=== PATIENT | male | born 1950 | race Caucasian/White ===

== ENCOUNTER 2019-02-05 13:39 | Emergency (ER) | payer BC, OTHER ==
--- OUTSIDE RECORDS SUMMARY | 2019-02-05 13:42 | XMS REPORT | Summary of Care ---
:1950 Author Organization [facility] Cardiology [facility] Address [address] [place] [address]- Encounter HQ Aydeer_williams(FIN) [id number] Date(s): 10/21/18 - 10/21/18 [facility] [address] [place], [place] [address]- [phone] Discharge Disposition: Home or Self Care Attending Physician: Yadiel Wilson MD Vital Signs Most recent to oldest [Reference Range]: 1 Height 172.72 cm (10/21/18 2:30 PM) Blood Pressure [90-140/60-90 mmHg] 154/90 mmHg *HI* (10/21/18 2:30 PM) Weight 89.148 kg (10/21/18 2:30 PM) Body Mass Index 29.88 m2 (10/21/18 2:30 PM) Problem List Condition Effective Dates Status Health Status Informant Asthma1, 2 Active Benign hypertension(Confirmed) Active Chest discomfort(Confirmed) Active Dyspnea3, 4 03/10/13 Active Dyspnea on exertion(Confirmed) Active [place] - Hard of hearing(Confirmed) Active Mass of chest wall(Confirmed) Active Obesity5, 6 03/10/13 Active 1Data migrated from [employer] on 12/15/14.2Data migrated from [employer] on 12/15/14.3Data migrated from [employer] on 12/15/14.4Data migrated from [employer] on 12/15/14.5Data migrated from [employer] on 12/15/14.6Data migrated from [employer] on 12/15/14. Allergies, Adverse Reactions, Alerts Substance Reaction Severity Status penicillins1 PENICILLINS Active PENICILLINS Antibody to PCNA measurement Antibody to PCNA measurement Penicillin G Benzathine,300,000 U/ML,Injection (systemic),injection 1Data migrated from [employer] on 02/11/15. Originally documented as PCN. Medications losartan 50 mg oral tablet 50 mg=1 tab, PO, Daily, # 90 tab, 3 Refill(s), Pharmacy: [place] [id number] Start Date: 10/21/18 Stop Date: 10/16/19 Status: Ordered Results No data available for this section Immunizations No data available for this section Procedures Procedure Date Related Diagnosis Body Site Status Achilles tendon repair Completed Arthroscopy of knee Completed Operation Completed Social History Social History Type Response Exercise Exercise frequency: 1-2 times/week. Alcohol Never Smoking Status Never smoker; Exposure to Tobacco Smoke None; Cigarette Smoking Last 365 Days No; Reg Smoking Cessation Counseling No entered on: 10/21/18 Assessment and Plan No data available for this section
--- OUTSIDE RECORDS SUMMARY | 2019-02-05 13:42 | XMS REPORT | Continuity of Care Document ---
:1950 Author Organization [facility] [place] Care Team Providers Name Role Phone The[facility] Information Interactive TKO Unavailable Unavailable Problems Problem Status Onset Classification Date Comments Source Date Reported Dyspnea3, 4 Active 03/10/20 Problem 01/17/2019 Data migrated from [email or web address] on 12/15/14. Medical 13 Data migrated from [email or web address] on 12/15/14. Group,[facility] Obesity5, 6 Active 03/10/20 Problem 01/17/2019 Data migrated from [email or web address] on 12/15/14. Medical 13 Data migrated from [email or web address] on 12/15/14. Group,[facility] 733.90 Active 03/10/20 13 [facility] Asthma1, 2 Active Problem 01/17/2019 Data migrated from [email or web address] on 12/15/14. Medical Data migrated from [email or web address] on 12/15/14. Group,[facility] Benign Active Problem 01/17/2019 Medical hypertension Group,[facility] Chest discomfort Active Problem 01/17/2019 Medical Group,[facility] Dyspnea on Active Problem 01/17/2019 Medical exertion Group,[facility] [place] - Hard of Active Problem 01/17/2019 Medical hearing Group,[facility] Mass of chest Active Problem 01/17/2019 Medical wall Group,[facility] Agatston Active Problem 01/17/2019 Medical coronary artery Group, calcium score [facility] greater than 400 [facility] Aortic ectasia, Active Problem 01/17/2019 Medical thoracic Group Hyperglycemia Active Problem 01/17/2019 Medical Group,[facility] Medications Medication Details Route Status Patient Ordering Order Source Instructions Provider Date Oxymetazoline 2 spray, Active hydrochloride NASAL, BID, 019 Medical 0.5 MG/ML Nasal 0 Refill(s) Group [place] [Mucinex Nasal [place]] losartan 50 mg 50 mg=1 tab, Active oral tablet PO, Daily, # 019 Medical 90 tab, 3 Group Refill(s), Pharmacy: [facility] [id number] Allergies, Adverse Reactions, Alerts Substance Category Reaction Severity Reaction Status Date Comments Source type Reported penicillins Assertion PENICILLINS Drug Active Data <sup>1</sup , allergy 3 migrated Medical > PENICILLINS from [employer] , Antibody [employer]ricity to PCNA on 02/11/15. measurement Originally , Antibody documented to PCNA as PCN. measurement , Penicillin G Benzathine, 300,000 U/ML,Inject ion (systemic), injection Immunizations No Data Provided for This Section Results No Data Provided for This Section Pathology Reports No Data Provided for This Section Diagnostic Reports Report Value Date Source Heart wo contrast w EXAM: 11/27/2018 [facility] eval coronary calc C CT coronary artery calcium scoring without contrast. City CLINICAL HX: - htn. Screening. Age: 68 years. Gender: Male. TECHNIQUE: Contiguous axial coned down CT images of the heart. IV contrast: Absent. Protocol: Coronary artery calcium scoring with analysis performed using Agatston scoring method (utilizing AJ 130 software). No cardiac gating. Dose: -- DLP 196 mGy-cm. -- AEC, mA/kV adjustment by patient size, and/or iterative reconstruction technique were used, per departmental dose-optimization program. COMPARISON: None. FINDINGS: --Cardiac findings-- Coronary artery calcium score: -- Left main artery (LMA): 0. -- Left anterior descending artery (LAD): 575. -- Left circumflex artery (LCx): 131. -- Right coronary artery (RCA): 212. -- Posterior descending artery (PDA): 0. -- Other: 0. -- Total: 918. Coronary arteries: Detailed evaluation limited by absence of cardiac gating. -- LMA origin: Left coronary cusp. -- RCA origin: Right coronary cusp. -- Dominance (based on PDA source): Cannot be definitively determined due to non-gated study. Heart: Unremarkable. --Noncardiac findings-- Thoracic aorta: -- Ascending aorta diameter: 4 cm (at the level of the right pulmonary artery ). -- Other: None. Other: Bilateral hilar calcified granulomas. Mild gynecomastia. IMPRESSION: 1. Total calcium score: 918. This is consistent with extensive atherosclerotic plaque burden and corresponds to the 80%ile for a healthy person of similar age/gender (with lower percentiles generally being better). 2. Mild ascending aortic aneurysmal dilatation measuring 4 cm. Consider follow-up. Note: -- Clinical significance of calcium score should be weighed along with other factors, such as number of calcified vessels (heightened significance when >/=2 vessels), age/gender, symptoms, and risk factors. -- A calcium score of 0 does not entirely exclude the presence of soft noncalcified plaque, particularly in younger patients and heavy smokers. Consultation Notes No Data Provided for This Section Discharge Summaries No Data Provided for This Section History and Physicals No Data Provided for This Section Vital Signs Vital Sign Value Date Comments Source Height 172.72 cm 01/15/2019 [facility] Systolic (mm Hg) 126 01/15/2019 [facility] Diastolic (mm Hg) 82 01/15/2019 [facility] BMI Calculated 29.71 01/15/2019 [facility] Weight 88.636 01/15/2019 [facility] Weight 89.148 10/21/2018 [facility] BMI Calculated 29.88 10/21/2018 [facility] Systolic (mm Hg) 154 10/21/2018 [facility] Diastolic (mm Hg) 90 10/21/2018 [facility] Height 172.72 cm 10/21/2018 [facility] Encounters Location Location Encounter Encounter Reason Attending ADM DC Status Source Details Type Number For Provider Date Date Visit [facility] [id number] 733.90 ZA BUENO 03[facility]21 03[facility]21 [facility] [id number] Yadiel Wilson 10/[address] [facility] Outpatient [id number] Yadiel Wilson 10/21 10/22 Cardiology [facility] Outpatient [id number] 11/[address] [facility] Outpatient [id number] August Arreola 11/15 11/16 Cardiology [facility] Outpt Diag [id number] Yadiel Wilson 11/27 11/28 [facility] Outpatient [id number] 12/[address] [facility] 2 -VISIT [place] [facility] Outpatient [id number] August Arreola 12/03 12/04 Cardiology [facility] Outpatient [id number] Yadiel Wilson 01/[address] [facility] [place] [facility] Outpatient [id number] Yadiel Wilson 01/15 01/16 Cardiology [facility] Procedures Procedure Code Date Perfomer Comments Source Achilles tendon [id number] Medical repair Group Arthroscopy of [id number] Medical knee Group Operation [id number] Medical Group CT of heart [id number] See Care 4 Medical without contrast Group with calcium scoring<sup>1</back p> Echocardiogram<back [id number] See Care 4 Medical p>2</sup> Group Exercise stress [id number] See Care 4 Medical test<sup>3</sup> Group Achilles tendon [id number] [facility] repair [facility] Arthroscopy of [id number] [facility] knee [facility] CT of heart 851553851535792 See Care 4 [facility] without contrast [facility] with calcium scoring<sup>1</back p> Operation [id number] [facility] Assessment and Plan No Data Provided for This Section Plan of Care No Data Provided for This Section Social History Social History Date Source Social History TypeResponse 10/21/2018 Medical Group Exercise Exercise frequency: 1-2 times/week. Alcohol Never Smoking Status Never smoker; Exposure to Tobacco Smoke None; Cigarette Smoking Last 365 Days No; Reg Smoking Cessation Counseling No entered on: 01/15/19 Social History TypeResponse 10/21/2018 [facility] Exercise Exercise frequency: 1-2 times/week. Alcohol Never Smoking Status Never smoker; Exposure to Tobacco Smoke None; Cigarette Smoking Last 365 Days No; Reg Smoking Cessation Counseling No entered on: 10/21/18 Family History No Data Provided for This Section Advance Directives No Data Provided for This Section Functional Status No Data Provided for This Section
--- OUTSIDE RECORDS SUMMARY | 2019-02-05 13:42 | XMS REPORT | Summary of Care ---
:1950 Author Organization [facility] Cardiology [facility] Address [address] [place] [address]- Encounter HQ Aydeer_williams(FIN) [id number] Date(s): 11/15/18 - 11/15/18 [facility] [address] [place], [place] [address]- [phone] Discharge Disposition: Home or Self Care Attending Physician: Yadiel Wilson MD Referring Physician: August Arreola MD Vital Signs No data available for this section Problem List Condition Effective Dates Status Health Status Informant Asthma1, 2 Active Benign hypertension(Confirmed) Active Chest discomfort(Confirmed) Active Dyspnea3, 4 03/10/13 Active Dyspnea on exertion(Confirmed) Active [place] - Hard of hearing(Confirmed) Active Mass of [...] G Benzathine,300,000 U/ML,Injection (systemic),injection 1Data migrated from [employer] on 02/11/15. Originally documented as PCN. Medications No data available for this section Results No data available for this section [...]
--- OUTSIDE RECORDS SUMMARY | 2019-02-05 13:42 | XMS REPORT ---
:1950 [facility] Address [address] [place] [address] Care Team Providers Name Role Phone Unavailable Unavailable Unavailable Problems This patient has no known problems. Allergies, Adverse Reactions, Alerts This patient has no known allergies or adverse reactions. Medications This patient has no known medications.
--- OUTSIDE RECORDS SUMMARY | 2019-02-05 13:42 | XMS REPORT | Summary of Care ---
:1950 Author Organization [facility] Outpatient Imaging [facility] Address [address] [place] [address]- Encounter HQ Aydeer_williams(FIN) [id number] Date(s): 11/27/18 - 11/27/18 [facility] Outpatient Imaging [address] [address]- [phone] Discharge Disposition: Home or Self Care Attending Physician: Yadiel Wilson MD Referring Physician: Yadiel Wilson MD Vital Signs No data available for this section Problem List Condition Effective Dates Status Health Status Informant Asthma1, 2 Active Benign hypertension(Confirmed) Active Chest discomfort(Confirmed) Active Agatston coronary artery calcium score Active greater than 400(Confirmed) Dyspnea3, 4 03/10/13 Active Dyspnea on exertion(Confirmed) Active [place] - Hard of hearing(Confirmed) Active Hyperglycemia(Confirmed) Active Mass of chest wall(Confirmed) Active Obesity5, [...] tendon repair Completed Arthroscopy of knee Completed CT of heart without contrast with calcium Completed scoring1 Operation Completed 1See Care 4 Social History Social History Type Response Exercise Exercise frequency: 1-2 times/week. Alcohol Never Smoking Status Never smoker; Exposure to Tobacco Smoke None; Cigarette Smoking Last 365 Days No; Reg Smoking Cessation Counseling No entered on: 10/21/18 Assessment and Plan No data available for this section
--- OUTSIDE RECORDS SUMMARY | 2019-02-05 13:42 | XMS REPORT | Summary of Care ---
:1950 Author Organization [facility] Cardiology [facility] Address [address] [place] [address]- Encounter HQ Aydeer_williams(FIN) [id number] Date(s): 12/03/18 - 12/03/18 [facility] [address] [place], [place] [address]- [phone] Discharge Disposition: Home or Self Care Attending Physician: Yadiel Wilson MD Referring Physician: August Arreola MD Vital Signs No data available for this section Problem List Condition Effective Dates Status Health Status Informant Asthma1, 2 Active Benign hypertension(Confirmed) Active Chest discomfort(Confirmed) Active Agatston coronary artery calcium score Active greater than 400(Confirmed) Dyspnea3, 4 03/10/13 Active Dyspnea on exertion(Confirmed) Active [place] - Hard of hearing(Confirmed) Active Hyperglycemia(Confirmed) Active [...]
--- OUTSIDE RECORDS SUMMARY | 2019-02-05 13:42 | XMS REPORT | Summary of Care ---
:1950 Author Organization [facility] Cardiology [facility] Address [address] [place] [address]- Encounter HQ Mikayla_williams(FIN) [id number] Date(s): 01/15/19 - 01/15/19 [facility] [address] [place], [place] [address]- [phone] Discharge Disposition: Home or Self Care Attending Physician: Yadiel Wilson MD Referring Physician: August Arreola MD Vital Signs Most recent to oldest [Reference Range]: 1 Height 172.72 cm (01/15/19 1:01 PM) Blood Pressure [90-140/60-90 mmHg] 126/82 mmHg (01/15/19 1:01 PM) Weight 88.636 kg (01/15/19 1:01 PM) Body Mass Index 29.71 m2 (01/15/19 1:01 PM) Problem List Condition Effective Dates Status Health Status Informant Asthma1, 2 Active Benign hypertension(Confirmed) Active Chest discomfort(Confirmed) Active Agatston coronary artery calcium score Active greater than 400(Confirmed) Dyspnea3, 4 03/10/13 Active Dyspnea on exertion(Confirmed) Active Aortic ectasia, thoracic(Confirmed) Active [place] - Hard of hearing(Confirmed) Active Hyperglycemia(Confirmed) Active [...] G Benzathine,300,000 U/ML,Injection (systemic),injection 1Data migrated from [employer] on 02/11/15. Originally documented as PCN. Medications Mucinex Sinus-Max Moisture Smart 0.05% nasal spray 2 spray, NASAL, BID, 0 Refill(s) Start Date: 01/15/19 Status: Ordered Results No data available for this section Immunizations No data available for this section Procedures Procedure Date Related Diagnosis Body Site Status Achilles tendon repair Completed Arthroscopy of knee Completed CT of heart without contrast with calcium Completed scoring1 Echocardiogram2 Completed Exercise stress test3 Completed Operation Completed 1See Care 42See Care 43See Care 4 Social History Social History Type Response Exercise Exercise frequency: 1-2 times/week. Alcohol Never Smoking Status Never smoker; Exposure to Tobacco Smoke None; Cigarette Smoking Last 365 Days No; Reg Smoking Cessation Counseling No entered on: 01/15/19 Assessment and Plan No data available for this section
[2019-02-05] MEDS ORDERED: LEVALBUTEROL 1.25 MG/3 ML NEB ONE (14:14)
[2019-02-05] MEDS ORDERED: MEPERIDINE HCL 25 MG/0.5 ML ONE (14:14)
--- NOTE | 2019-02-05 15:05 | RAD REPORT ---
EXAM DESCRIPTION: RAD - Chest Pa And Lat (2 Views) - 02/05/2019 3:00 pm CLINICAL HISTORY: PAIN Chest pain. COMPARISON: No comparisons FINDINGS: Mild linear subsegmental atelectasis is seen in the left lower lobe. The lungs are otherwi se clear. The heart is normal in size. Subtle lucency is seen in the lateral left inferior tenth rib, questionable for a nondisplaced fracture.
--- NOTE | 2019-02-05 15:09 | RAD REPORT ---
EXAM DESCRIPTION: RAD - Ribs Left - 02/05/2019 3:03 pm CLINICAL HISTORY: rolled over large bolt;Pain COMPARISON: Chest Pa And Lat (2 Views) dated 02/05/2019 FINDINGS: A displaced rib fracture is not identified. No underlying pneumothorax seen.
--- NOTE | 2019-02-05 15:23 | EDPHYS ---
Physician Documentation [facility] Name: Aunp Dawn Age: 68 yrs Sex: Male : 1950 Arrival Date: 02/05/2019 Time: 13:45 Bed 5 Private MD: ED Physician Brayden De Leon HPI: 02/05 13:56 This 68 yrs old Male presents to ER via Ambulatory with complaints of Rib rn pain. 13:56 The patient or guardian reports chest pain that is located primarily in the anterior rn chest wall, left lateral anterior chest. Onset: The symptoms/episode began/occurred yesterday. The pain does not radiate. Associated signs and symptoms: Pertinent positives: cough, shortness of breath, Pertinent negatives: abdominal pain, diaphoresis, palpitations, syncope, vomiting. The chest pain is described as sharp, stabbing. Duration: The patient or guardian reports multiple episodes, that are intermittent. Modifying factors: The symptoms are alleviated by nothing. the symptoms are aggravated by cough, deep breath, palpation of area. Severity of pain: At its worst the pain was moderate in the emergency department the pain is unchanged. The patient has not experienced similar symptoms in the past. Reports rolled over large bolt yesterday, states "went between the ribs", denies actual puncture, reports increased pain since then and sob. Denies smoking history, reports recent "sinus problems". No hemoptysis. [place] a pop when rolled over the bolt head.. Historical: - Allergies: 13:51 PENICILLINS; aj - Immunization history:: Adult Immunizations up to date. - Social history:: Smoking status: Patient/guardian denies using tobacco. - Ebola Screening: : Patient negative for fever greater than or equal to 101.5 degrees Fahrenheit, and additional compatible Ebola Virus Disease symptoms Patient denies exposure to infectious person Patient denies travel to an Ebola-affected area in the 21 days before illness onset No symptoms or risks identified at this time. - Family history:: not pertinent. - Hospitalizations: : No recent hospitalization is reported. ROS: 13:56 Constitutional: Negative for fever, chills, and weight loss, Eyes: Negative for injury, rn pain, redness, and discharge, Cardiovascular: + left rib pain and injury Respiratory: + sob and cough Abdomen/GI: Negative for abdominal pain, nausea, vomiting, diarrhea, and constipation, MS/Extremity: Negative for injury and deformity, Skin: Negative for injury, rash, and discoloration, Neuro: Negative for headache, weakness, numbness, tingling, and seizure. Exam: 14:41 Constitutional: This is a well developed, well nourished patient who is awake, alert, rn + mild tachypnea and appears in pain Head/Face: Normocephalic, atraumatic. Eyes: Pupils equal round and reactive to light, extra-ocular motions intact. Lids and lashes normal. Conjunctiva and sclera are non-icteric and not injected. Cornea within normal limits. Periorbital areas with no swelling, redness, or edema. ENT: MMM Chest/axilla: + tender left lateral ribs, no crepitus, no open wound or puncture wounds Cardiovascular: tachycardic, regular, no murmur Respiratory: + bilateral wheezing with tachypnea, no retractions, breath soudns equal Abdomen/GI: soft, non-tender MS/ Extremity: Pulses equal, no cyanosis. Neurovascular intact. Full, normal range of motion. Equal circumference. Neuro: Awake and alert, GCS 15, oriented to person, place, time, and situation. Cranial nerves II-XII grossly intact. Motor strength 5/5 in all extremities. Sensory grossly intact. Cerebellar exam normal. Normal gait. Vital Signs: 13:51 BP 153 / 96; Pulse 110; Resp 23; Temp 98.2; Pulse Ox 92% on R/A; Weight 88.45 kg; aj Height 5 ft. 8 in. (172.72 cm); 14:38 BP 119 / 86; Pulse 115; Resp 22; Pulse Ox 94% on R/A; hj 15:39 BP 115 / 85; Pulse 90; Resp 18; Pulse Ox 95% on R/A; hj 13:51 Body Mass Index 29.65 (88.45 kg, 172.72 cm) aj MDM: 13:49 Patient medically screened. rn 15:20 Differential diagnosis: Blunt Chest Trauma Chest Wall Contusion Chest Wall Injury rn Pneumothorax Pulmonary Contusion Rib Fracture. Data reviewed: vital signs, nurses notes, radiologic studies, plain films, and as a result, I will discharge patient. Counseling: I had a detailed discussion with the patient and/or guardian regarding: the historical points, exam findings, and any diagnostic results supporting the discharge/admit diagnosis, radiology results, the need for outpatient follow up, to return to the emergency department if symptoms worsen or persist or if there are any questions or concerns that arise at home. Response to treatment: the patient's symptoms have mildly improved after treatment, and as a result, I will discharge patient. Special discussion: I discussed with the patient/guardian in detail that at this point there is no indication for admission to the hospital. It is understood, however, that if the symptoms persist or worsen the patient needs to return immediately for re-evaluation. Based on the history and exam findings, there is no indication for further emergent testing or inpatient evaluation. I discussed with the patient/guardian the need to see the primary care provider for further evaluation of the symptoms. ED course: Possible rib fracture on xray, no PTX, will dc home with pain meds, IS, and inhaler. Told him wheezing likely from second hand smoke from .. 02/05 13:50 Order name: Chest Pa And Lat (2 Views) XRAY; Complete Time: 15:16 bd 02/05 13:56 Order name: XRAY Ribs LEFT; Complete Time: 15:16 rn 02/05 13:54 Order name: EKG; Complete Time: 13:55 rn 02/05 15:24 Order name: INCENTIVE SPIROMETRY rn 02/05 13:54 Order name: IV Start; Complete Time: 14:04 rn 02/05 13:54 Order name: EKG - Nurse/Tech; Complete Time: 14:04 rn Administered Medications: 13:55 Drug: Xopenex (3) 1.25 mg Route: Inhalation; hj 15:17 Follow up: Response: No adverse reaction; Wheezing diminished hj 13:55 Drug: Demerol 25 mg Route: IVP; Site: left forearm; hj 15:16 Follow up: Response: No adverse reaction hj 15:16 Follow up: Response: No adverse reaction; Pain is decreased hj Disposition: 02/05/19 15:22 Discharged to Home. Impression: Wheezing, Fracture of one rib, left side. - Condition is Stable. - Discharge Instructions: How to Use an Inhaler, Rib Fracture, Incentive Spirometer. - Prescriptions for Prednisone 20 mg Oral Tablet - take 3 tablet by ORAL route once daily for 5 days; 15 tablet. Tylenol- Codeine #3 300-30 mg Oral Tablet - take 1 tablet by ORAL route every 6 hours As needed; 20 tablet. Albuterol Sulfate 90 mcg/actuation - inhale 1-2 puff by INHALATION route every 4-6 hours; 1 Inhaler. - Medication Reconciliation Form, Thank You Letter, Antibiotic Education, Prescription Opioid Use form. - Follow up: Private Physician; When: As needed; Reason: Recheck today's complaints, Re-evaluation by your physician. - Problem is new. - Symptoms have improved. Signatures: Dispatcher [employer] EDMS Micheline Bernard RN RN aj Nieto, Roman, MD MD rn Joaquin, Henry, RN RN hj Corrections: (The following items were deleted from the chart) 14:41 13:56 Constitutional: Negative for fever, chills, and weight loss, Eyes: Negative for rn injury, pain, redness, and discharge, Cardiovascular: + left rib pain and injury Respiratory: + sob and cough rn 15:39 15:22 02/05/2019 15:22 Discharged to Home. Impression: Wheezing; Fracture of one rib, hj left side. Condition is Stable. Forms are Medication Reconciliation Form, Thank You Letter, Antibiotic Education, Prescription Opioid Use. Follow up: Private Physician; When: As needed; Reason: Recheck today's complaints, Re-evaluation by your physician. Problem is new. Symptoms have improved. rn
--- NOTE | 2019-02-05 15:23 | ER ---
Nurse's Notes [facility] Name: Anup Dawn Age: 68 yrs Sex: Male : 1950 Arrival Date: 02/05/2019 Time: 13:45 Bed 5 Private MD: Diagnosis: Wheezing;Fracture of one rib, left side Presentation: 02/05 13:50 Presenting complaint: Patient states: Right rib pain after feeling a pop while working aj on truck yesterday after brushing up on a bolt. Patient then felt pop and has had SOB after coughing last night. Decreased breath sounds to right bases. Transition of care: patient was not received from another setting of care. Onset of symptoms was February 05, 2019. Risk Assessment: Do you want to hurt yourself or someone else? Patient reports no desire to harm self or others. Initial Sepsis Screen: Does the patient meet any 2 criteria? No. Patient's initial sepsis screen is negative. Does the patient have a suspected source of infection? No. Patient's initial sepsis screen is negative. Care prior to arrival: None. 13:50 Method Of Arrival: Ambulatory 13:50 Acuity: [place] 2 aj Triage Assessment: 13:51 General: Appears in no apparent distress. uncomfortable, Behavior is calm, cooperative, aj appropriate for age. Pain: Complains of pain in left eighth rib and left ninth rib. Neuro: Level of Consciousness is awake, alert, obeys commands, Oriented to person, place, time, situation, Appropriate for age. Respiratory: Reports shortness of breath cough that is Airway is patent Respiratory effort is even, labored, Respiratory pattern is tachypnea Breath sounds are diminished in left lower lobe and left posterior lower lobe. Derm: Skin is intact, is healthy with good turgor, Skin is pink, warm \T\ dry. normal. Historical: - Allergies: 13:51 PENICILLINS; aj - Immunization history:: Adult Immunizations up to date. - Social history:: Smoking status: Patient/guardian denies using tobacco. - Ebola Screening: : Patient negative for fever greater than or equal to 101.5 degrees Fahrenheit, and additional compatible Ebola Virus Disease symptoms Patient denies exposure to infectious person Patient denies travel to an Ebola-affected area in the 21 days before illness onset No symptoms or risks identified at this time. - Family history:: not pertinent. - Hospitalizations: : No recent hospitalization is reported. Screenin:53 Abuse screen: Denies threats or abuse. Denies injuries from another. Nutritional hj screening: No deficits noted. Tuberculosis screening: No symptoms or risk factors identified. Fall Risk None identified. Assessment: 13:51 General: Appears in no apparent distress. uncomfortable, Behavior is calm, cooperative, hj appropriate for age. Pain: Complains of pain in left lateral anterior chest and left posterior lower lobe and left lower lobe and left ninth rib and left eighth rib Pain currently is 10 out of 10 on a pain scale. Neuro: Level of Consciousness is awake, alert, obeys commands, Oriented to person, place, time, situation, Appropriate for age. Cardiovascular: Capillary refill < 3 seconds Patient's skin is warm and dry. Respiratory: Reports pain with respiration. GI: No signs and/or symptoms were reported involving the gastrointestinal system. : No signs and/or symptoms were reported regarding the genitourinary system. EENT: No signs and/or symptoms were reported regarding the EENT system. Derm: No signs and/or symptoms reported regarding the dermatologic system. Musculoskeletal: No signs and/or symptoms reported regarding the musculoskeletal system. 14:50 Reassessment: Patient and/or family updated on plan of care and expected duration. Pain hj level reassessed. Patient is alert, oriented x 3, equal unlabored respirations, skin warm/dry/pink. Patient states feeling better. Patient states symptoms have improved. 15:37 Reassessment: Patient and/or family updated on plan of care and expected duration. Pain hj level reassessed. Patient is alert, oriented x 3, equal unlabored respirations, skin warm/dry/pink. Patient states feeling better. Patient states symptoms have improved. Vital Signs: 13:51 BP 153 / 96; Pulse 110; Resp 23; Temp 98.2; Pulse Ox 92% on R/A; Weight 88.45 kg; aj Height 5 ft. 8 in. (172.72 cm); 14:38 BP 119 / 86; Pulse 115; Resp 22; Pulse Ox 94% on R/A; hj 15:39 BP 115 / 85; Pulse 90; Resp 18; Pulse Ox 95% on R/A; hj 13:51 Body Mass Index 29.65 (88.45 kg, 172.72 cm) ED Course: 13:45 Patient arrived in ED. mr 13:48 Abdi Rajan RN is Primary Nurse. hj 13:49 Brayden De Leon MD is Attending Physician. rn 13:51 Triage completed. aj 13:51 Arm band placed on left wrist. Patient placed in an exam room. aj 13:53 Patient has correct armband on for positive identification. Bed in low position. Call hj light in reach. Side rails up X 1. 13:55 Inserted saline lock: 20 gauge in right antecubital area, using aseptic technique. hj 14:05 Radiology exam delayed due to patient receiving breathing treatment at this time. sw 15:01 Chest Pa And Lat (2 Views) XRAY In Process Unspecified. EDMS 15:02 XRAY Ribs LEFT In Process Unspecified. EDMS 15:38 No provider procedures requiring assistance completed. IV discontinued, intact, hj bleeding controlled, No redness/swelling at site. Pressure dressing applied. Administered Medications: 13:55 Drug: Xopenex (3) 1.25 mg Route: Inhalation; hj 15:17 Follow up: Response: No adverse reaction; Wheezing diminished hj 13:55 Drug: Demerol 25 mg Route: IVP; Site: left forearm; hj 15:16 Follow up: Response: No adverse reaction hj 15:16 Follow up: Response: No adverse reaction; Pain is decreased hj Outcome: 15:22 Discharge ordered by MD. rn 15:38 Discharged to home ambulatory, with family. hj 15:38 Condition: stable 15:38 Discharge instructions given to patient, family, Instructed on discharge instructions, follow up and referral plans. medication usage, Demonstrated understanding of instructions, follow-up care, medications, Prescriptions given X 3. 15:39 Patient left the ED. hj Signatures: Dispatcher [employer] EDMS Micheline Bernard, Raven Avilez RN mr Brayden De Leon MD MD rn Warren, Shannon Abdi Rajan RN RN hj
--- NOTE | 2019-02-05 15:47 | EKG ---
Test Date: 2019-02-05 Test Time: 14:06:52 Boss Miner: BG/S MEASUREMENT RESULTS: Intervals: Rate: 115 SC: 146 QRSD: 76 QT: 304 QTc: 420 [place]: P: 36 SC: 146 QRS: 17 T: 34 INTERPRETIVE STATEMENTS: Sinus tachycardia Otherwise normal ECG No previous ECG available for comparison Electronically Signed On 02-05-19 15:47:19 CDT by Rangel Mcgowan
== END 2019-02-05 15:39 | disposition home or self-care (01) ==
LOC: ER 13:39
DX: S22.32XA Fracture of one rib, left side, initial encounter for closed fracture (principal); W22.8XXA Striking against or struck by other objects, initial encounter; R06.2 Wheezing; Z88.0 Allergy status to penicillin
CPT/HCPCS: 71046; 93005; 96374; 99284; J2175

== ENCOUNTER 2021-07-07 10:51 | Emergency (ER) | payer BC ==
--- OUTSIDE RECORDS SUMMARY | 2021-07-07 10:54 | XMS REPORT | Continuity of Care Document ---
:1950 Author Organization [facility] t Address 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 Medical Group,[facility] Obesity Problem Active 2019-12-18 Carlos anand (disorder) 03-10 23:48:16 l Obesity 00:00: [place] (disorder) 00 Active 03/10/2013 Problem 12/18/2019 Data migrated from [employer] on 12/15/14.Ash a migrated from [employer] on 12/15/14. [facility] Diagnosis Active 2013-03-31 Mem oria - 16:04:00 l 733.90 00:00: [place] 00 Active 03/10/2013 [place] Asthma Problem Active 2019-12-18 Memor ia (disorder) 23:48:16 l Asthma [place] (disorder) Active Problem 12/18/2019 Data migrated from [employer] on 12/15/14.Ash a migrated from [employer] on 12/15/14. Medical Group,[facility] Benign Problem Active 2019-12-18 Memor ia hypertensi 23:48:16 l on Benign [place] (disorder) hypertensi on (disorder) Active Problem 12/18/2019 Medical Group,[facility] Chest Problem Active 2019-12-18 Memor ia discomfort 23:48:16 l (finding) Chest Taco n discomfort (finding) Active Problem 12/18/2019 Medical Group,[facility] Dyspnea on Problem Active 2019-12-18 M emoria exertion 23:48:16 l (finding) Dyspnea Herm onel on exertion (finding) Active Problem 12/18/2019 Medical Group,[facility] Hearing Problem Active 2019-12-18 Carlos anand loss 23:48:16 l (finding) Hearing Herm onel loss (finding) Active Problem 12/18/2019 Medical [facility] Mass of Problem Active 2019-12-18 Carlos anand chest wall 23:48:16 l (finding) Mass of Herm onel chest wall (finding) Active Problem 12/18/2019 Medical [facility] Abnormal Problem Active 2019-12-[address] scan 23:48:16 l (finding) Abnormal Her hayes CT scan (finding) Active Problem 12/18/2019 Medical Group,[facility] 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 emoria thoracic 23:48:16 l 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 (disorder) Active Problem 12/18/2019 Medical Group Hyperglyce Problem Active 2019-12-18 M emoria zayda 23:48:16 l (disorder) Taco n Hyperglyce zayda (disorder) Active Problem 12/18/2019 Medical Group,[facility] Allergies, Adverse Reactions, Alerts Allergy Allergy Status Severity Reaction(s) Onset Inactive Treating Comm ents Source Name Type Date Date Clinician Penicill Propensi Active Rash Univer s ins ty to 3-03 ity of adverse 00:00: [place] reaction Medical s Branch penicill penicill Active Memori a ins<sup> ins<sup> 8-26 l 1</sup> 1</sup> 05:00: [place] 00 Social History Social Habit Start Date Stop Date Quantity Comments Source Alcohol intake 2019-04-11 2019-04-11 Current [facility] 00:00:00 00:00:00 non-drinker of [facility] alcohol [place] (finding) Tobacco use and 2018-12-13 2018-12-13 Never used Universit y of exposure 00:00:00 00:00:00 [facility] Social History 2018-10-21 [facility]10[facility] 19:37:28 Sex Ass[birth year] At [birth year] [facility] of 00:00:00 00:00:00 [facility] Smoking Status Start Date Stop Date Source Never smoker [facility] Medications Ordered Filled Start Stop Current Ordering Indication Dosage Frequency Signature Comments Components Source Medication Medication Date Date Medication? Clinician (SIG) Name Name atorvastati Yes = 1 tab, Me moria n 20 mg 6-01 PO, l oral tablet 13:59: Bedtime, # [place] 00 90 tab, 2 Refill(s), Pharmacy: [place] [address] atorvastati Yes = 1 tab, Me moria n 20 mg 6-01 PO, l oral tablet 13:59: Bedtime, # [place] 00 90 tab, 2 Refill(s), Pharmacy: [place] [address] atorvastati Yes = 1 tab, Me moria n 20 mg 6-01 PO, l oral tablet 13:59: Bedtime, # [place] 00 90 tab, 2 Refill(s), Pharmacy: [place] [address] atorvastati Yes = 1 tab, Me moria n 20 mg 6-01 PO, l oral tablet 13:59: Bedtime, # [place] 00 90 tab, 2 Refill(s), Pharmacy: [place] [address] clotrimazol Yes [id number] Apply to [facility] e-betametha 04-11 area(s) 2 ity of sone cream 00:00: (two) [place] 00 times Medical daily. Branch atorvastati Yes 20mg 20 mg. Univ ers n 20 mg 8-05 ity of tablet 00:00: [place] 00 Medical Branch losartan 50 2018-0 Yes 50mg 50 mg. Univ ers mg tablet 7-31 ity of 00:00: [place] 00 Medical Branch albuterol 2018-0 Yes [id number] 2{puff} Inhale 2 Univers 90 7-23 Puffs ity of mcg/actuati 00:00: every 6 Augie as on inhaler 00 (six) Medical hours as Branch needed for Wheezing or Shortness of Breath. Oxymetazoli 2019- Yes 2 spray, Me moria ne 7-03 NASAL, l hydrochlori 18:15: BID, 0 Herm onel de 0.5 00 Refill(s) MG/ML Nasal [place] [Mucinex Nasal [place]] Oxymetazoli Yes 2 spray, Me moria ne 7-03 NASAL, l hydrochlori 18:15: BID, 0 Herm onel de 0.5 00 Refill(s) MG/ML Nasal [place] [Mucinex Nasal [place]] Oxymetazoli Yes 2 spray, Me moria ne 7-03 NASAL, l hydrochlori 18:15: BID, 0 Herm onel de 0.5 00 Refill(s) MG/ML Nasal [place] [Mucinex Nasal [place]] Oxymetazoli 2019 Yes 2 spray, Me moria ne 7-03 NASAL, l hydrochlori 18:15: BID, 0 Herm onel de 0.5 00 Refill(s) MG/ML Nasal [place] [Mucinex Nasal [place]] losartan 50 2019-0 Yes 50 mg = 1 M emoria mg oral 4-08 tab, PO, l tablet 22:23: Daily, # [place] 00 90 tab, 3 Refill(s), Pharmacy: [place] [address] losartan 50 2018-0 Yes 50 mg = 1 M emoria mg oral 4-08 tab, PO, l tablet 22:23: Daily, # [place] 00 90 tab, 3 Refill(s), Pharmacy: [place] [address] losartan 50 2018-0 Yes 50 mg = 1 M emoria mg oral 4-08 tab, PO, l tablet 22:23: Daily, # [place] 00 90 tab, 3 Refill(s), [facility] losartan 50 2019-0 Yes 50 mg = 1 M emoria mg oral 4-08 tab, PO, l tablet 22:23: Daily, # [place] 00 90 tab, 3 Refill(s), Pharmacy: [facility] 256 Vital Signs Vital Name Observation Time Observation Value Comments Source Height 2019-08-27 20:52:00 172.72 cm [facility] [place] Systolic (mm Hg) 2019-08-27 20:52:00 Carlos rial [place] Diastolic (mm Hg) 2019-08-27 20:52:00 Mem orial [place] Weight 2019-08-27 20:52:00 [facility] [place] BMI Calculated 2019-08-27 20:52:00 Memori al [place] Height 2019-01-15 18:01:00 172.72 cm [facility] [place] Systolic (mm Hg) 2019-01-15 18:01:00 Carlos rial [place] Diastolic (mm Hg) 2019-01-15 18:01:00 Mem orial [place] BMI Calculated 2019-01-15 18:01:00 Memori al [place] Weight 2019-01-15 18:01:00 [facility] [place] Weight 2018-10-21 19:30:00 [facility] [place] BMI Calculated 2018-10-21 19:30:00 Memori al [place] Systolic (mm Hg) 2018-10-21 19:30:00 Carlos rial [place] Diastolic (mm Hg) 2018-10-21 19:30:00 Mem orial [place] Height 2018-10-21 19:30:00 172.72 cm [facility] [place] Procedures Procedure Date / Time Performed Performing Clinician [facility] rosalie Achilles tendon repair [facility] Arthroscopy of knee [facility] Operation [facility] CT of heart without [facility] contrast with calcium scoring<sup>1</sup> Echocardiogram<sup>2</sup Memori al [place] > Exercise stress [facility] test<sup>3</sup> Encounters Start End Encounter Admission Attending Care Care Encounter Source Date/Time Date/Time Type Type Clinicians Facility Department ID 2021-07-07 2021-07-07 [id number] Univers 00:00:00 00:00:00 [facility] [id number] it y maritza WALKER [id number] Augie as TYREE?BLEA [id number] [address] MEDICAL OFFICE BUILDING 2021-04-08 2021-04-08 Outpatient SENAIT, [facility] [id number] [place] 00:00:00 00:00:00 JEAN PAUL [address] 2021-04-08 2021-04-08 Outpatient [facility] [id number] [place] 00:00:00 00:00:[address] 2021-03-17 2021-03-17 Outpatient SENAIT, [facility] [id number] [place] 00:00:00 00:00:00 JEAN PAUL [address] 2021-03-11 2021-03-11 Outpatient SENAIT, [facility] [id number] [place] 00:00:00 00:00:00 JEAN PAUL [address] 2021-03-11 2021-03-11 Outpatient KHANH, [facility] [id number] [place] 00:00:00 00:00:00 CLIFF [address] 2021-03-03 2021-03-03 Outpatient SENAIT, [facility] [id number] [place] 00:00:00 00:00:00 JEAN PAUL [address] 2021-03-03 2021-03-03 Outpatient SENAIT, [facility] [id number] [place] 00:00:00 00:00:00 JEAN PAUL [address] 2019-12-15 2019-12-17 Phone nullFlavo [facility] [id number] Memoria 13:59:10 04:59:59 Message r Cardiology 01 [facility] [place] [facility] 2019-08-27 2019-08-28 [place] [id number] Memoria 21:00:00 05:59:59 r Cardiology 04 [facility] [place] [facility] 2019-08-15 2019-08-17 Phone nullFlavo MG [id number] Memoria 15:25:47 05:59:59 Message r Cardiology 00 [facility] [place] [facility] 2019-01-15 2019-01-16 [place] [id number] Memoria 18:30:00 04:59:59 r Cardiology 03 [facility] [place] [facility] 2018-12-03 2018-12-04 [place] [id number] Memoria 17:30:00 04:59:59 r Cardiology 02 l [facility] 2018-11-27 2018-11-28 Outpt Diag nullFlavo [facility] [id number] Memoria 17:26:00 04:59:00 Services r Outpatient 00 l [facility] 2018-11-15 2018-11-16 Outpatient nullFlavo [facility] [id number] Memoria 14:00:00 04:59:59 r Cardiology 01 l [facility] 2018-10-21 2018-10-22 Outpatient nullFlavo [facility] [id number] Memoria 20:00:00 04:59:59 r Cardiology 00 l [facility] 2013-03-21 2013-03-21 DS nullFlavo [id number] Memoria 09:42:00 13:28:00 r [facility] 00 l [facility] This patient has no known results.
[2021-07-07 12:13] LABS: Potassium 4.1 mmol/L (3.5-5.1)
--- NOTE | 2021-07-07 13:06 | RAD REPORT ---
EXAM DESCRIPTION: CT - Head Brain Wo Cont - 07/07/2021 12:43 pm CLINICAL HISTORY: Visual disturbance COMPARISON: None TECHNIQUE: Computed axial tomography of the head was obtained. IV contrast was not requested. All CT scans are performed using dose optimization technique as appropriate and may include automated exposure control or mA/KV adjustment according to patient size. FINDINGS: An intracranial bleed is not seen . The ventricles are normal in caliber. No extra-axial fluid collection is noted. 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 Patient appears to have had right mastoid surgery. Opacification left mastoids IMPRESSION: No acute intracranial abnormality is seen. If patient's symptoms persist MRI of the bra in would be recommended. Opacification left mastoids may indicate mastoiditis
--- NOTE | 2021-07-07 13:17 | RAD REPORT ---
EXAM DESCRIPTION: CTHead angio07/07/2021 12:43 pm CLINICAL HISTORY: Visual disturbance COMPARISON: None TECHNIQUE: CT angiogram of the head was obtained. 3D MIPS reconstruction performed. All CT scans are performed using dose optimization technique as appropriate and may include automated exposure control or mA/KV adjustment according to patient size. FINDINGS: Mild calcified plaque distal carotid arteries. Otherwise basilar, internal carotid, anterior cerebral, middle cerebral and posterior cerebral arteri es are normal caliber. An aneurysm is not seen. origin right posterior cerebral artery. Distal right vertebral artery is either very hypoplasti c or terminates into the PICA A significant stenosis is not noted. IMPRESSION: No acute abnormality is seen. If clinically indicated further evaluation with MRI could be obtained
--- NOTE | 2021-07-07 13:29 | EDPHYS ---
Physician Documentation [facility] Name: Anup Dawn Age: 71 yrs Sex: Male : 1950 Arrival Date: 07/07/2021 Time: 10:53 Bed 14 Private MD: ED Physician Ant Cabrera HPI: 07/07 13:03 This 71 yrs old Male presents to ER via Ambulatory with complaints of DOUBLE VISION. jr8 13:03 This is a further evaluation of double vision. Patient stated that since this weekend dolores has been seeing double. Was seen by geriatric aide on Sunday in which he had blood work drawn for giant cell arteritis. This has come back negative. Patient continues to have double vision. His geriatric aide otherwise said that he cannot find anything wrong with his eyes. I wrote him for outpatient CT and MRI as well. Came to emergency room for further evaluation due to continuation of symptoms.. Historical: - Allergies: 11:08 PENICILLINS; ss - Home Meds: 11:08 Aspirin Oral [Active]; Metformin Oral [Active]; losartan oral [Active]; ss - Immunization history:: Client reports having NOT received the Covid vaccine. - Social history:: Smoking status: Patient denies any tobacco usage or history of. ROS: 13:03 Eyes: Positive for visual disturbance, Negative for pain. jr8 13:03 Neuro: Positive for headache. 13:03 All other systems are negative. Exam: 13:03 Visual Acuity: Visual acuity is within normal limits. jr8 13:03 Eyes: Pupils equal round and reactive to light, extra-ocular motions intact. Lids and lashes normal. Conjunctiva and sclera are non-icteric and not injected. Cornea within normal limits. Periorbital areas with no swelling, redness, or edema. ENT: Nares patent. No nasal discharge, no septal abnormalities noted. Tympanic membranes are normal and external auditory canals are clear. Oropharynx with no redness, swelling, or masses, exudates, or evidence of obstruction, uvula midline. Mucous membranes moist. Neck: Trachea midline, no thyromegaly or masses palpated, and no cervical lymphadenopathy. Supple, full range of motion without nuchal rigidity, or vertebral point tenderness. No Meningismus. Cardiovascular: Regular rate and rhythm with a normal S1 and S2. No gallops, murmurs, or rubs. Normal PMI, no JVD. No pulse deficits. Respiratory: Lungs have equal breath sounds bilaterally, clear to auscultation and percussion. No rales, rhonchi or wheezes noted. No increased work of breathing, no retractions or nasal flaring. Abdomen/GI: Soft, non-tender, with normal bowel sounds. No distension or tympany. No guarding or rebound. No evidence of tenderness throughout. Back: No spinal tenderness. No costovertebral tenderness. Full range of motion. Skin: Warm, dry with normal turgor. Normal color with no rashes, no lesions, and no evidence of cellulitis. MS/ Extremity: Pulses equal, no cyanosis. Neurovascular intact. Full, normal range of motion. Neuro: Awake and alert, GCS 15, oriented to person, place, time, and situation. Cranial nerves II-XII grossly intact. Motor strength 5/5 in all extremities. Sensory grossly intact. Cerebellar exam normal. Normal gait. Vital Signs: 11:06 BP 160 / 92; Pulse 77; Resp 16; Temp 97.4(TE); Pulse Ox 99% on R/A; Weight 82.55 kg; ss Height 5 ft. 8 in. (172.72 cm); Pain 0/10; 12:00 BP 126 / 82; Pulse 85; Resp 15; Pulse Ox 95% ; Pain 0/10; eo2 12:00 BP 117 / 82; Pulse 84; Resp 15; Pulse Ox 94% ; eo2 14:33 BP 130 / 90; Pulse 95; Resp 15; Pulse Ox 100% ; Pain 0/10; eo2 11:06 Body Mass Index 27.67 (82.55 kg, 172.72 cm) MDM: 11:08 Patient medically screened. jr8 13:26 Data reviewed: vital signs, nurses notes, lab test result(s), radiologic studies, CT jr8 scan. Data interpreted: Pulse oximetry: on room air is 94 %. Interpretation: acceptable. Counseling: I had a detailed discussion with the patient and/or guardian regarding: the historical points, exam findings, and any diagnostic results supporting the discharge/admit diagnosis, lab results, radiology results, the need for outpatient follow up, an opthalmologist, a neurologist, to return to the emergency department if symptoms worsen or persist or if there are any questions or concerns that arise at home. ED course: Eren with patient that there is no acute findings on the head CT without contrast or the angio. Recommended continuation with his outpatient MRI as there is no other clinically emergent findings noted on physical exam or on the imaging or lab work that we completed today that would warrant emergent MRI usage. Patient is understanding of this and will follow up with his geriatric aide. I will also refer him to a neurologist as well. Patient knows to come to come back at any point time if anything were to worsen or change.. 07/07 11:33 Order name: Basic Metabolic Panel jr8 07/07 11:34 Order name: Basic Metabolic Panel; Complete Time: 12:40 EDMS 07/07 11:33 Order name: IV; Complete Time: 12:59 jr8 07/07 11:34 Order name: CT Head Brain wo Cont; Complete Time: 13:26 jr8 07/07 11:34 Order name: Head Angio CT; Complete Time: 13:26 jr8 07/07 12:08 Order name: Glucose, Ancillary Testing; Complete Time: 12:40 EDMS Administered Medications: No medications were administered Disposition: 17:04 Co-signature as Attending Physician, Ant Cabrera MD I agree with the assessment and kdr plan of care. Disposition Summary: 07/07/21 13:29 Discharge [facility]dered [email or web address] Problem: new jr8 Symptoms: are unchanged jr8 Condition: Stable jr8 Diagnosis - Diplopia jr8 Followup: jr8 - With: Alex Mccormack MD - When: 5 - 6 days - Reason: Recheck today's complaints, Continuance of care, Re-evaluation by your physician Discharge Instructions: - Discharge Summary Sheet jr8 - Diplopia jr8 - Visual Disturbances jr8 Forms: - Medication Reconciliation Form jr8 - Thank You Letter jr8 - Antibiotic Education jr8 - Prescription Opioid Use jr8 - Work release form eb Signatures: Dispatcher [employer] EDMS Ant Cabrera MD MD kdr Smirch, Shelby, RN RN Mynor Carvajal PA PA jr8
--- NOTE | 2021-07-07 13:29 | ER ---
Nurse's Notes [facility] Name: Anup Dawn Age: 71 yrs Sex: Male : 1950 Arrival Date: 07/07/2021 Time: 10:53 Bed 14 Private MD: Diagnosis: Diplopia Presentation: 07/07 11:06 Chief complaint: Patient states: double vision that began Sunday. Pt was seen at Dr. maria fernanda Dixon's office yesterday and was told that he was okay, but was told he was diabetic, "or something". Pt has outpatient labs drawn yesterday, but nobody has given him his results yet. Coronavirus screen: Client denies travel out of the [place] in the last 14 days. Ebola Screen: Patient denies exposure to infectious person. Patient denies travel to an Ebola-affected area in the 21 days before illness onset. Initial Sepsis Screen: Does the patient meet any 2 criteria? No. Patient's initial sepsis screen is negative. Does the patient have a suspected source of infection? No. Patient's initial sepsis screen is negative. Risk Assessment: Do you want to hurt yourself or someone else? Patient reports no desire to harm self or others. Onset of symptoms was July 04, 2021. 11:06 Method Of Arrival: Ambulatory 11:06 Acuity: LAW[place] 3 ss Historical: - Allergies: 11:08 PENICILLINS; ss - Home Meds: 11:08 Aspirin Oral [Active]; Metformin Oral [Active]; losartan oral [Active]; ss - Immunization history:: Client reports having NOT received the Covid vaccine. - Social history:: Smoking status: Patient denies any tobacco usage or history of. Screenin:00 Abuse screen: Denies threats or abuse. Nutritional screening: No deficits noted. eo2 Tuberculosis screening: No symptoms or risk factors identified. Fall Risk None identified. Assessment: 12:08 General: Appears in no apparent distress. comfortable, Behavior is calm, cooperative. eo2 Pain: Denies pain. Neuro: Level of Consciousness is awake, alert, obeys commands, Oriented to person, place, time, situation, Moves all extremities. Speech is normal, Facial symmetry appears normal, Reports diplopia, double vision onset Sunday per pt, reports headache at onset, presently denies LINDSEY. Denies dizziness, reports feeling"a little off" upon standing. Cardiovascular: No deficits noted. Respiratory: No deficits noted. Musculoskeletal: No deficits noted. Vital Signs: 11:06 BP 160 / 92; Pulse 77; Resp 16; Temp 97.4(TE); Pulse Ox 99% on R/A; Weight 82.55 kg; ss Height 5 ft. 8 in. (172.72 cm); Pain 0/10; 12:00 BP 126 / 82; Pulse 85; Resp 15; Pulse Ox 95% ; Pain 0/10; eo2 12:00 BP 117 / 82; Pulse 84; Resp 15; Pulse Ox 94% ; eo2 14:33 BP 130 / 90; Pulse 95; Resp 15; Pulse Ox 100% ; Pain 0/10; eo2 11:06 Body Mass Index 27.67 (82.55 kg, 172.72 cm) ED Course: 10:53 Patient arrived in ED. ds1 11:00 Mynor Funk PA is PHCP. jr8 11:00 Ant Cabrera MD is Attending Physician. jr8 11:08 Triage completed. ss 11:08 Arm band placed on right wrist. ss 11:43 Laquita Ibarra, LAURIE is Primary Nurse. eo2 11:58 Initial lab(s) drawn, by fl, sent to lab. Blood Glucose 187 \\[id number]\\[id number], RN informed. kv1 Inserted saline lock: 20 gauge in right forearm, using aseptic technique. 12:00 Patient has correct armband on for positive identification. Placed in gown. Bed in low eo2 position. Call light in reach. Side rails up X 1. 12:00 No provider procedures requiring assistance completed. eo2 12:42 CT Head Brain wo Cont In Process Unspecified. EDMS 12:[address] In Process Unspecified. EDMS 13:28 Alex Mccormack MD is Referral Physician. jr8 13:35 Basic Metabolic Panel Sent. eo2 14:33 IV discontinued. eo2 Administered Medications: No medications were administered Outcome: 13:29 Discharge ordered by . jr8 14:33 Discharged to home ambulatory. eo2 14:33 Condition: stable 14:33 Discharge instructions given to patient, Instructed on discharge instructions, follow up and referral plans. Demonstrated understanding of instructions, follow-up care. 14:35 Patient left the ED. eo2 Signatures: Dispatcher [employer] EDMS Johnsoni ds1 Alessandra Omer, RN RN ss Mynor Funk PA PA jr8 Ashutosh Vilchis Eunice RN RN eo2
[2021-07-07 14:43] VITALS: TEMP 97.4
[2021-07-07 14:48] VITALS: BP 130/90; O2SAT 100
== END 2021-07-07 14:35 | disposition home or self-care (01) ==
LOC: ER 10:51
DX: H53.2 Diplopia (principal); Z79.82 Long term (current) use of aspirin; Z88.0 Allergy status to penicillin
CPT/HCPCS: 80048; 36415; 82947; 70450; 70496; 99284; Q9967

== ENCOUNTER 2024-01-04 10:17 | Emergency (ER) | payer BC, OTHER ==
[2024-01-04] MEDS ORDERED: LIDOCAINE 1% MPF 5 ML VIAL ONE (12:05)
[2024-01-04] MEDS ORDERED: dexAMETHasone 10 MG/ML VIAL ONE (12:05)
--- NOTE | 2024-01-04 12:20 | EDPHYS ---
Physician Documentation [facility] Name: Anup Dawn Age: 73 yrs Sex: Male : 1950 Arrival Date: 01/04/2024 Time: 10:17 Bed 11 Private MD: ED Physician Andrew Mejía HPI: 01/03 12:52 This 73 yrs old Male presents to ER via Ambulatory with complaints of Cyst. rt 12:52 Patient presents to the ED with an abscess to the right buttock. Is been present for rt several days. Patient denies drainage to the area. Denies fever, chills, acute complaints, symptoms are mild in severity, no other aggravating or alleviating factors.. Historical: - Allergies: 10:40 PENICILLINS; hb - Home Meds: 10:40 Farxiga oral [Active]; Aspirin Oral [Active]; hb - PMHx: 10:40 Hypertension; hb - PSHx: 10:40 Bilateral ears; hb - Immunization history:: Adult Immunizations up to date. - Infectious Disease History:: Denies. - Social history:: Smoking status: Patient denies any tobacco usage or history of. - Family history:: not pertinent. ROS: 12:52 Constitutional: Negative for fever, chills, and weight loss, Cardiovascular: Negative rt for chest pain, palpitations, and edema, Respiratory: Negative for shortness of breath, cough, wheezing, and pleuritic chest pain, Abdomen/GI: Negative for abdominal pain, nausea, vomiting, diarrhea, and constipation, 12:52 Skin: Positive for abscess, Exam: 12:52 Constitutional: This is a well developed, well nourished patient who is awake, alert, rt and in no acute distress. Head/Face: Normocephalic, atraumatic. Chest/axilla: Normal chest wall appearance and motion. Nontender with no deformity. No lesions are appreciated. Cardiovascular: Regular rate and rhythm with a normal S1 and S2. No gallops, murmurs, or rubs. Normal PMI, no JVD. No pulse deficits. Respiratory: Lungs have equal breath sounds bilaterally, clear to auscultation and percussion. No rales, rhonchi or wheezes noted. No increased work of breathing, no retractions or nasal flaring. Abdomen/GI: Soft, non-tender, with normal bowel sounds. No distension or tympany. No guarding or rebound. No evidence of tenderness throughout. 12:52 Skin: 2 cm abscess noted to right buttock, surrounding erythema noted.. Vital Signs: 10:38 Temp 97.8(TE); Weight 75.75 kg; Height 5 ft. 8 in. ; Pain 10/10; hb 10:38 Body Mass Index 25.39 (75.75 kg, 172.72 cm) hb 10:38 Pain Scale: Adult hb Procedures: 12:52 I \T\ D: Incision and drainage was performed for an abscess of the right Buttock Prepped rt with alcohol, Anesthetized with 2 ml's 1% Lidocaine. Incised with #11 blade. Drained moderate amount purulent fluid. Dressing: sterile 4x4 gauze, the patient tolerated the procedure well. MDM: 11:29 Patient medically screened. rt 12:52 Differential Diagnosis Abscess, cellulitis. Data reviewed: vital signs, nurses notes. I rt considered the following discharge prescriptions or medication management in the emergency department Medications were administered in the Emergency Department. See MAR. Test considered but Not performed: Other Details Stable vital signs, only small abscess noted, do not suspect deeper infection, CT scan, labs are not indicated.. Care significantly affected by the following chronic conditions: Hypertension. Counseling: I had a detailed discussion with the patient and/or guardian regarding the historical points, exam findings, and any diagnostic results supporting the discharge/admit diagnosis, the need for outpatient follow up, to return to the emergency department if symptoms worsen or persist or if there are any questions or concerns that arise at home. Response to treatment: the patient's symptoms have markedly improved after treatment. 01/03 11:36 Order name: I\T\D Setup; Complete Time: 12:08 rt Administered Medications: 12:08 Drug: Dexamethasone IM 10 mg IM once Route: IM; Site: left deltoid; hb Disposition Summary: 01/04/24 12:19 Discharge Ordered Notes: Location: Home rt Problem: new rt Symptoms: have improved rt Condition: Stable rt Diagnosis - Cutaneous abscess to left buttock rt Followup: rt - With: Private Physician - When: 5 - 6 days - Reason: Discharge Instructions: - Discharge Summary Sheet rt - Skin Abscess rt Forms: - Medication Reconciliation Form rt - Antibiotic Education rt - Prescription Opioid Use rt - Patient Portal Instructions rt - Leadership Thank You Letter rt Prescriptions: - Doxycycline Hyclate 100 mg Oral Tablet - take 1 tablet ORAL route every 12 hours; 20 tablet; Refills: 0, Product rt Selection Permitted Signatures: Kassandra Ramsey, RN RN Andrew Loving MD MD rt
--- NOTE | 2024-01-04 12:20 | ER ---
Nurse's Notes [facility] Name: Anup Dawn Age: 73 yrs Sex: Male : 1950 Arrival Date: 01/04/2024 Time: 10:17 Bed 11 Private MD: Diagnosis: Cutaneous abscess to left buttock Presentation: 01/03 10:38 Chief complaint: Abscess on right hip x 1 week. Coronavirus screen: At this time, the hb client does not indicate any symptoms associated with coronavirus-19. Ebola Screen: No symptoms or risks identified at this time. Initial Sepsis Screen: Does the patient meet any 2 criteria? No. Patient's initial sepsis screen is negative. Does the patient have a suspected source of infection? No. Patient's initial sepsis screen is negative. Risk Assessment: Do you want to hurt yourself or someone else? Patient reports no desire to harm self or others. Onset of symptoms was December 30, 2023. 10:38 Method Of Arrival: Ambulatory hb 10:38 Acuity: LAWSON 4 hb Triage Assessment: 10:41 General: Appears in no apparent distress. Behavior is calm, cooperative. Pain: Pain hb currently is 10 out of 10 on a pain scale. EENT: Neuro: Level of Consciousness is awake, alert, obeys commands, Oriented to person, place, time, situation. Cardiovascular: Patient's skin is warm and dry. Respiratory: Respiratory effort is even, unlabored, Respiratory pattern is regular, symmetrical. Derm: Abscess located on left lateral hip is half dollar sized, has no drainage, is red. Historical: - Allergies: 10:40 PENICILLINS; hb - Home Meds: 10:40 Farxiga oral [Active]; Aspirin Oral [Active]; hb - PMHx: 10:40 Hypertension; hb - PSHx: 10:40 Bilateral ears; hb - Immunization history:: Adult Immunizations up to date. - Infectious Disease History:: Denies. - Social history:: Smoking status: Patient denies any tobacco usage or history of. - Family history:: not pertinent. Screenin:45 [facility] ED Fall Risk Assessment (Adult) History of falling in the last 3 months, hb including since admission No falls in past 3 months (0 pts) Confusion or Disorientation No (0 pts) Intoxicated or Sedated No (0 pts) Impaired Gait No (0 pts) Mobility Assist Device Used No (0 pt) Altered Elimination No (0 pt) Score/Fall Risk Level 0 - 2 = Low Risk Oriented to surroundings, Maintained a safe environment, Educated pt \T\ family on fall prevention, incl call for assistance when getting out of bed. Abuse screen: Denies threats or abuse. Denies injuries from another. Nutritional screening: No deficits noted. Tuberculosis screening: No symptoms or risk factors identified. Assessment: 11:45 General: See triage assessment. hb Vital Signs: 10:38 Temp 97.8(TE); Weight 75.75 kg; Height 5 ft. 8 in. ; Pain 10/10; hb 10:38 Body Mass Index 25.39 (75.75 kg, 172.72 cm) hb 10:38 Pain Scale: Adult hb ED Course: 10:20 Patient arrived in ED. mg5 10:40 Triage completed. hb 10:41 Andrew Mejía MD is Attending Physician. rt 10:41 Arm band placed on. hb 11:45 Patient has correct armband on for positive identification. Provided Education on: hb procedures, medications, use of call light. 11:45 No provider procedures requiring assistance completed. Patient did not have IV access hb during this emergency room visit. 12:08 Kassandra Ramsey RN is Primary Nurse. hb Administered Medications: 12:08 Drug: Dexamethasone IM 10 mg IM once Route: IM; Site: left deltoid; hb Medication: 11:45 VIS not applicable for this client. hb Outcome: 12:19 Discharge ordered by . rt 13:16 Patient left the ED. [id number] Signatures: Kassandra Ramsey RN RN Andrew Mejía MD MD rt Philomena Amezquita mg5 Jocelyne Corets jr12
[2024-01-04 13:47] VITALS: TEMP 97.8
== END 2024-01-04 13:16 | disposition home or self-care (01) ==
LOC: ER 10:17
PROC: 0H98XZZ Drainage of Buttock Skin, External Approach (ICD-10-PCS; principal; 2024-01-04)
DX: L02.31 Cutaneous abscess of buttock (principal)
CPT/HCPCS: 96372; 99283; 10060; J2001; J1100

== ENCOUNTER 2024-01-10 10:25 | Emergency (ER) | payer BC, OTHER ==
--- NOTE | 2024-01-10 11:33 | RAD REPORT ---
EXAM DESCRIPTION: CT - Pelvis Wo Cont - 01/10/2024 11:16 am CLINICAL HISTORY: abscess to buttock Pain and swelling COMPARISON: No comparisons TECHNIQUE: All CT scans are performed using dose optimization technique as appropriate and may inclu de automated exposure control or mA/KV adjustment according to patient size. FINDINGS: No pelvic mass or free fluid. No pelvic lymphadenopathy. No well-formed abscess is seen. Moderate to large fat containing right inguinal hernia. IMPRESSION: No soft tissue abscess is identifiable. No mass or free fluid. Moderate right fat containing inguinal hernia.
--- NOTE | 2024-01-10 13:43 | ER ---
Nurse's Notes [facility] Name: Anup Dawn Age: 73 yrs Sex: Male : 1950 Arrival Date: 01/10/2024 Time: 10:25 Bed DX5 Private MD: Diagnosis: Cellulitis to buttock Presentation: 01/09 10:44 Chief complaint: Patient states: need for cyst recheck to left gluteus, reports was aa5 seen here recently and not improving. Coronavirus screen: At this time, the client does not indicate any symptoms associated with coronavirus-19. Ebola Screen: Patient denies travel to an Ebola-affected area in the 21 days before illness onset. Initial Sepsis Screen: Does the patient meet any 2 criteria? No. Patient's initial sepsis screen is negative. Does the patient have a suspected source of infection? No. Patient's initial sepsis screen is negative. Risk Assessment: Do you want to hurt yourself or someone else? Patient reports no desire to harm self or others. Onset of symptoms was December 2023. 10:44 Acuity: LAWSON 4 aa5 10:44 Method Of Arrival: Ambulatory aa5 Historical: - Allergies: 10:46 PENICILLINS; aa5 - PMHx: 10:46 Hypertension; aa5 - PSHx: 10:46 Bilateral ears; aa5 - Immunization history:: Adult Immunizations unknown. - Infectious Disease History:: Denies. - Social history:: Smoking status: Patient/guardian denies using tobacco. - Family history:: not pertinent. Screenin:45 [facility] ED Fall Risk Assessment (Adult) History of falling in the last 3 months, kb3 including since admission No falls in past 3 months (0 pts) Confusion or Disorientation No (0 pts) Intoxicated or Sedated No (0 pts) Impaired Gait No (0 pts) Mobility Assist Device Used No (0 pt) Altered Elimination No (0 pt) Score/Fall Risk Level 0 - 2 = Low Risk Oriented to surroundings. Abuse screen: Denies threats or abuse. Denies injuries from another. Nutritional screening: No deficits noted. Tuberculosis screening: No symptoms or risk factors identified. Assessment: 13:45 General: Appears in no apparent distress. comfortable, Behavior is calm, cooperative. kb3 Pain: Complains of pain in right gluteus michelle. Derm: Abscess located on right gluteus michelle. 13:45 General: Pt seen several days ago to have abscess drained. Returns today with redness kb3 to right buttock and feels like wound is not getting better.. Vital Signs: 10:44 BP 115 / 84; Pulse 78; Resp 18 S; Temp 98(O); Pulse Ox 96% on R/A; Weight 77.11 kg (R); aa5 Height 5 ft. 8 in. (R); 13:55 BP 121 / 71; Pulse 78; Resp 18; Temp 98.3; Pulse Ox 100% ; kb3 10:44 Body Mass Index 25.85 (77.11 kg, 172.72 cm) aa5 ED Course: 10:26 Patient arrived in ED. mg5 10:32 Andrew Mejía MD is Attending Physician. rt 10:44 Arm band placed on. aa5 10:45 Triage completed. aa5 11:18 CT Pelvis wo Cont In Process Unspecified. EDMS 13:45 Patient has correct armband on for positive identification. Provided Education on: Plan kb3 of care, follow up, prescriptions. 13:45 No provider procedures requiring assistance completed. Patient did not have IV access kb3 during this emergency room visit. Administered Medications: No medications were administered Medication: 13:45 VIS not applicable for this client. kb3 Outcome: 13:43 Discharge ordered by . rt 13:45 Discharged to home ambulatory, kb3 13:45 Condition: stable 13:45 Discharge instructions given to patient, Instructed on discharge instructions, follow up and referral plans. medication usage, Demonstrated understanding of instructions, follow-up care, medications, Prescriptions given X 1, 14:21 Patient left the ED. kb3 Signatures: Dispatcher [employer] EDMS Marnie Hu, RN RN aa5 Cynthia Obrien, RN RN kb3 Andrew Mejía MD MD rt Philomena Amezquita mg5 Corrections: (The following items were deleted from the chart) 14:17 14:15 Pain: Complains of pain in left gluteus michelle kb3 kb3 14:17 14:15 Derm: Abscess located on left gluteus michelle kb3 kb3 14:18 14:15 General: Appears in no apparent distress. comfortable, Behavior is calm, kb3 cooperative, kb3 14:18 14:15 Derm: Abscess located on right gluteus michelle kb3 kb3 14:18 14:15 Pain: Complains of pain in right gluteus michelle kb3 kb3
--- NOTE | 2024-01-10 13:44 | EDPHYS ---
Physician Documentation [facility] Name: Anup Dawn Age: 73 yrs Sex: Male : 1950 Arrival Date: 01/10/2024 Time: 10:25 Bed DX5 Private MD: ED Physician Andrew Mejía HPI: 01/09 14:46 This 73 yrs old Male presents to ER via Ambulatory with complaints of Cyst. rt 14:46 Patient presents to the ED with reported abscess to the left buttock. Patient was seen rt by me, had an abscess drained about a week ago. Patient states that is improved, not resolved. He is concerned he has another abscess. Patient denies other acute complaints at this time, symptoms are moderate in severity, no other aggravating or alleviating factors.. Historical: - Allergies: 10:46 PENICILLINS; aa5 - PMHx: 10:46 Hypertension; aa5 - PSHx: 10:46 Bilateral ears; aa5 - Immunization history:: Adult Immunizations unknown. - Infectious Disease History:: Denies. - Social history:: Smoking status: Patient/guardian denies using tobacco. - Family history:: not pertinent. ROS: 14:46 Constitutional: Negative for fever, chills, and weight loss, Cardiovascular: Negative rt for chest pain, palpitations, and edema, Respiratory: Negative for shortness of breath, cough, wheezing, and pleuritic chest pain, Abdomen/GI: Negative for abdominal pain, nausea, vomiting, diarrhea, and constipation, Neuro: Negative for headache, weakness, numbness, tingling, and seizure, 14:46 Skin: Positive for abscess, cellulitis, Exam: 14:46 Constitutional: This is a well developed, well nourished patient who is awake, alert, rt and in no acute distress. Head/Face: Normocephalic, atraumatic. Chest/axilla: Normal chest wall appearance and motion. Nontender with no deformity. No lesions are appreciated. Cardiovascular: Regular rate and rhythm with a normal S1 and S2. No gallops, murmurs, or rubs. Normal PMI, no JVD. No pulse deficits. Respiratory: Lungs have equal breath sounds bilaterally, clear to auscultation and percussion. No rales, rhonchi or wheezes noted. No increased work of breathing, no retractions or nasal flaring. Abdomen/GI: Soft, non-tender, with normal bowel sounds. No distension or tympany. No guarding or rebound. No evidence of tenderness throughout. 14:46 Skin: Abscess to left buttock appears improved compared to 1 week ago. There is an area of induration superiorly, no fluctuance, does not appear to come to ahead. There is mild erythema at this area.. Vital Signs: 10:44 BP 115 / 84; Pulse 78; Resp 18 S; Temp 98(O); Pulse Ox 96% on R/A; Weight 77.11 kg (R); aa5 Height 5 ft. 8 in. (R); 13:55 BP 121 / 71; Pulse 78; Resp 18; Temp 98.3; Pulse Ox 100% ; kb3 10:44 Body Mass Index 25.85 (77.11 kg, 172.72 cm) aa5 MDM: 10:50 Patient medically screened. rt 14:46 Differential Diagnosis Abscess, cellulitis. Data reviewed: vital signs, nurses notes, rt radiologic studies. Independent interpretation of the following test(s) in the Emergency Department CT Scan: My interpretation is No drainable abscess seen on my interpretation of CT scan images. Test considered but Not performed: Labs: Stable vital signs, improving symptoms, labs not indicated. Care significantly affected by the following chronic conditions: Hypertension. Counseling: I had a detailed discussion with the patient and/or guardian regarding the historical points, exam findings, and any diagnostic results supporting the discharge/admit diagnosis, radiology results, the need for outpatient follow up. 01/09 10:57 Order name: CT Pelvis wo Cont; Complete Time: 11:34 rt Administered Medications: No medications were administered Disposition Summary: 01/10/24 13:43 Discharge Ordered Notes: Location: Home rt Problem: an ongoing problem rt Symptoms: are unchanged rt Condition: Stable rt Diagnosis - Cellulitis to buttock rt Followup: rt - With: Private Physician - When: 2 - 3 days - Reason: Discharge Instructions: - Discharge Summary Sheet rt - Cellulitis, Adult rt Forms: - Medication Reconciliation Form rt - Antibiotic Education rt - Prescription Opioid Use rt - Patient Portal Instructions rt - Leadership Thank You Letter rt Prescriptions: - Doxycycline Hyclate 100 mg Oral Tablet - take 1 tablet ORAL route every 12 hours; 20 tablet; Refills: 0, Product rt Selection Permitted Signatures: Dispatcher [employer] EDMS Hu, Marnie, RN RN aa5 Andrew Mejía MD MD rt
[2024-01-10 14:33] VITALS: BP 121/71; TEMP 98.3; O2SAT 100
== END 2024-01-10 14:21 | disposition home or self-care (01) ==
LOC: ER 10:25
DX: L03.317 Cellulitis of buttock (principal); I10 Essential (primary) hypertension; Z88.0 Allergy status to penicillin
CPT/HCPCS: 72192; 99283